=== PATIENT | female | born 1955 | race Caucasian/White ===

== ENCOUNTER → 2023-12-17 10:21 | Outpatient (REF) | payer MEDICARE, OTHER, SELFPAY ==
[2023-12-17 12:31] LABS: % Basophils 0.7 % (0-2); % Eosinophils 2.7 % (0-6); % Immature Granulocytes 0.3 % (0-0.5); % Lymphocytes 37.6 % (20.5-51.1); % Monocytes 8.4 % (1.7-9.3); % Neutrophils 50.3 % (42.2-75.2); Absolute Eosinophils 0.2 10^3/uL (0-0.7); Absolute Lymphocytes 2.2 10^3/uL (1.2-3.4); Absolute Monocytes 0.5 10^3/uL (0.1-0.6); Hematocrit 37.6 % (37.0-47.0); Hemoglobin 12.9 g/dL (12.0-16.0); Mean Corp Hgb Conc. 34.3 g/dL (33.0-37.0); Mean Corpuscular Hgb 31.3 pg (27.0-31.0); Mean Corpuscular Volume 91.3 fL (81.0-99.0); Nucleated Red Blood Cells % 0 %; Platelet Count 213 10^3/uL (130-400); Red Blood Cell Count 4.12 10^6/uL (4.20-5.40); Red Cell Dist. Width 12.3 % (11.5-14.5); White Blood Cell Count 5.9 10^3/uL (4.8-10.8)
[2023-12-17 12:47] LABS: ALT (SGPT) 26 U/L (0-35); AST (SGOT) 28 U/L (14-36); Albumin 4.2 g/dl (3.5-5.0); Alkaline Phosphatase 67 U/L (38-126); Blood Urea Nitrogen 28 mg/dl (7-17); Calcium 9.5 mg/dl (8.4-10.2); Carbon Dioxide 29 mmol/L (22-30); Chloride 105 mmol/L (98-107); Glucose 109 mg/dl (70-99); HDL Cholesterol 55 mg/dl; LDL Cholesterol, Calculated 88 mg/dl; Magnesium 2.2 mg/dl (1.6-2.3); Potassium 4.4 mmol/L (3.5-5.1); Sodium 140 mmol/L (135-145); Total Bilirubin 0.6 mg/dl (0.2-1.3); Total Cholesterol 162 mg/dl (50-199); Total Protein 6.5 g/dl (6.3-8.2); Triglyceride 98 mg/dl (10-149); Very Low Density Lipoprotein 19 mg/dl (0-30); eGFR > 60.00
[2023-12-17 12:57] LABS: Glycohemoglobin (HgbA1c) 5.5 % (4.0-5.6)
[2023-12-17 12:59] LABS: NT-proBNP 175 pg/ml
[2023-12-17 13:12] LABS: TSH Reflex To Free T4 1.71 uIU/ml (0.47-4.68)
[2023-12-20 00:50] LABS: Insulin, Random 9 uIU/mL
== END ==
LOC: HWLAB 10:21
PROVIDERS: ATTENDING PHYSICIAN Internal Medicine Cardiovascular Disease; FAMILY PHYSICIAN Family Medicine; REFERRING PHYSICIAN Otolaryngology
DX: I42.8 Other cardiomyopathies (principal); R73.9 Hyperglycemia, unspecified; I25.10 Atherosclerotic heart disease of native coronary artery without angina pectoris; E04.0 Nontoxic diffuse goiter
CPT/HCPCS: 36415; 80053; 80061; 83036; 83525; 83735; 83880; 84443; 85025

== ENCOUNTER → 2024-01-17 12:18 | Outpatient (REF) | payer MEDICARE, OTHER, SELFPAY | LOC: HWRCS 12:18 | PROVIDERS: ATTENDING PHYSICIAN Internal Medicine Cardiovascular Disease; FAMILY PHYSICIAN Family Medicine; REFERRING PHYSICIAN Internal Medicine Cardiovascular Disease | DX: I42.8 Other cardiomyopathies (principal) | CPT/HCPCS: 93306 ==

== ENCOUNTER → 2024-12-11 11:50 | Outpatient (REF) | payer MEDICARE, OTHER, SELFPAY ==
[2024-12-11 15:18] LABS: Blood Urea Nitrogen 23 mg/dl (7-17); Calcium 10.4 mg/dl (8.4-10.2); Carbon Dioxide 28 mmol/L (22-30); Chloride 108 mmol/L (98-107); Glucose 93 mg/dl (70-99); Sodium 142 mmol/L (135-145); eGFR > 60.00
[2024-12-11 15:56] LABS: Potassium 4.9 mmol/L (3.5-5.1)
== END ==
LOC: REG 11:50
PROVIDERS: ATTENDING PHYSICIAN Internal Medicine Cardiovascular Disease; FAMILY PHYSICIAN Family Medicine
DX: I42.8 Other cardiomyopathies (principal)
CPT/HCPCS: 36415; 80048

== ENCOUNTER → 2024-12-14 12:03 | Outpatient (REF) | payer MEDICARE, OTHER, SELFPAY | LOC: RAD 12:03 | PROVIDERS: ATTENDING PHYSICIAN Internal Medicine Cardiovascular Disease; FAMILY PHYSICIAN Family Medicine | DX: Z95.810 Presence of automatic (implantable) cardiac defibrillator (principal) | CPT/HCPCS: 71260; 74160; Q9967 ==

== ENCOUNTER → 2024-12-26 11:59 | Outpatient (REF) | payer MEDICARE, OTHER, SELFPAY | LOC: HWRAD 11:59 | PROVIDERS: ATTENDING PHYSICIAN Family Medicine; REFERRING PHYSICIAN Otolaryngology | DX: R05.9 Cough, unspecified (principal) | CPT/HCPCS: 71046 ==

== ENCOUNTER → 2025-01-11 14:45 | Outpatient (REF) | payer MEDICARE, OTHER, SELFPAY | LOC: RCS 14:45 | PROVIDERS: ATTENDING PHYSICIAN Internal Medicine Cardiovascular Disease; FAMILY PHYSICIAN Family Medicine | DX: I42.8 Other cardiomyopathies (principal) | CPT/HCPCS: 93306; 93356 ==

== ENCOUNTER → 2025-03-22 10:32 | Outpatient (REF) | payer MEDICARE, OTHER, SELFPAY ==
[2025-03-22 15:56] LABS: Free T3 4.76 pg/ml (2.77-5.27)
[2025-03-22 16:10] LABS: TSH 1.97 uIU/ml (0.47-4.68)
== END ==
LOC: HWLAB 10:32
PROVIDERS: ATTENDING PHYSICIAN Otolaryngology; FAMILY PHYSICIAN Family Medicine
DX: E04.0 Nontoxic diffuse goiter (principal); E07.9 Disorder of thyroid, unspecified
CPT/HCPCS: 36415; 84439; 84443; 84481

== ENCOUNTER → 2025-06-26 10:57 | Outpatient (REF) | payer MEDICARE, OTHER, SELFPAY ==
[2025-06-26 16:09] LABS: Hematocrit 38.6 % (37.0-47.0); Hemoglobin 13.3 g/dL (12.0-16.0); Mean Corp Hgb Conc. 34.5 g/dL (33.0-37.0); Mean Corpuscular Volume 90.0 fL (81.0-99.0); Nucleated Red Blood Cells % 0 %; Platelet Count 164 10^3/uL (130-400); Red Cell Dist. Width 12.0 % (11.5-14.5)
[2025-06-26 16:22] LABS: ALT (SGPT) 19 U/L (0-35); AST (SGOT) 20 U/L (14-36); Albumin 4.0 g/dl (3.5-5.0); Alkaline Phosphatase 90 U/L (38-126); Blood Urea Nitrogen 16 mg/dl (7-17); Calcium 9.2 mg/dl (8.4-10.2); Carbon Dioxide 25 mmol/L (22-30); Chloride 108 mmol/L (98-107); Glucose 106 mg/dl (70-99); HDL Cholesterol 52 mg/dl; LDL Cholesterol, Calculated 102 mg/dl; Potassium 4.0 mmol/L (3.5-5.1); Sodium 137 mmol/L (135-145); Total Protein 6.5 g/dl (6.3-8.2); Very Low Density Lipoprotein 32 mg/dl (0-30); eGFR > 60.00
[2025-06-26 16:37] LABS: Vitamin D, 25-OH*** 36.8 ng/mL (30-80)
== END ==
LOC: HWLAB 10:57
PROVIDERS: ATTENDING PHYSICIAN Family Medicine; REFERRING PHYSICIAN Internal Medicine Cardiovascular Disease
DX: I42.8 Other cardiomyopathies (principal); E78.2 Mixed hyperlipidemia; E55.9 Vitamin D deficiency, unspecified
CPT/HCPCS: 36415; 80053; 80061; 82306; 83880; 85025